=== PATIENT | female | born 1970 | race Caucasian/White ===

== ENCOUNTER → 2016-09-15 | Outpatient (CLI) | payer MEDICARE ==
--- NOTE | ~2016-09-15 | CT4 ---
[facility] A Service of [facility] RADIOLOGY TEXT RESULTS PATIENT: ABRAN HARRIS LOCATION: [facility] : 74 UNIT #: [id number] AGE: [address]: Rubén Nixon MD SEX: F ORDER DR: [id number] [facility] [address] [place], [place] [address] [id number] O MR#: [id number] Acc #: [id number] NAME: ABRAN HARRIS : 1970 SEX: F STUDY DATE/TIME: 09/15/2016 15:21 UNIT: [facility]AT ROOM: STUDY DESCRIPTION: CT Abd and Pelv Wo Cont Attending Physician: Rubén Nixon M.D. Referring Physician: Rubén Nixon M.D. Ordering Physician: Rubén Nixon M.D. Primary Care Physician: Jennifer Jain M.D. MEDICAL IMAGING REPORT This report is preliminary unless electronic signature is present EXAM CT abdomen and pelvis without contrast. INDICATIONS Unexplained 30 pounds weight loss in the past 2 months. Lower abdominal and pelvic pain and cramping for the past [address] of the abdomen and pelvis. This CT exam was performed with one or more of the following radiation dose reduction techniques: automatic exposure control, adjustment of mA and/or kV according to patient size, and iterative reconstruction. COMPARISON None FINDINGS ABDOMEN WITHOUT CONTRAST: Lung bases are clear. The liver measures 23.7 cm in length. Diffuse hepatic steatosis. Spleen measures 13.2 cm. The kidneys, adrenal glands, pancreas, and gallbladder have an unremarkable unenhanced appearance. The bowel loops are nondilated. Appendix is normal. PELVIS WITHOUT CONTRAST: No pelvic mass or fluid. No aggressive-appearing bone lesion. IMPRESSION 1. No acute findings in the abdomen or pelvis. 2. Hepatosplenomegaly with hepatic steatosis. Dictated by... [facility] A Service [facility] RADIOLOGY TEXT RESULTS PATIENT: ABRAN HARRIS LOCATION: [facility] : 74 UNIT #: [id number] AGE: [address]: Rubén Nixon MD SEX: F ORDER DR: Twan Busch M.D. THIS IS AN ELECTRONICALLY VERIFIED REPORT Twan Busch M.D. at 09/22/2016 8:20 AM Nanda TD: 09/16/2016 12:34 JOB #: [id number] MEDICAL IMAGING REPORT Page 1 of 1 COPY
[2016-09-15 13:59] LABS: HEMATOCRIT 40.4 % (35.0-45.0); HEMOGLOBIN 13.7 gm/dL (12.0-16.0); MEAN CELL VOLUME 95.9 FL (83-96); MEAN CORPUSCULAR HEMOGLOBIN 32.5 PG (28-34); MEAN CORPUSCULAR HGB CONC 33.9 g/dL (30-36); MEAN PLATELET VOLUME 7.6 FL (6.5-11.5); RED BLOOD COUNT 4.21 X10e (3.90-5.30); RED CELL DISTRIBUTION WIDTH 21.1 % (11.0-15.5); WHITE BLOOD COUNT 10.8 X10e3 (4.0-10.5)
[2016-09-15 14:46] LABS: ALBUMIN SERUM 3.6 g/dL (3.5-5.0); ALKALINE PHOSPHATASE 94 U/L (32-92); ALT (SGPT) 22 U/L (10-40); AMYLASE 8 U/L (0-46); AST (SGOT) 40 U/L (10-42); BILIRUBIN,TOTAL 0.4 mg/dL (0.2-2.0); BLOOD UREA NITROGEN <5 mg/dL (9-23); BUN/CREATININE RATIO 3.33; CALCIUM SERUM 9.8 mg/dL (8.4-10.2); CARBON DIOXIDE 26 mmol/L (22-31); CHLORIDE 109 mmol/L (100-111); CREATININE SERUM 1.5 mg/dL (0.6-1.4); GLOM FILT RATE Estimated 42.2 mL/min (>60); GLUCOSE FASTING 109 mg/dL (70-110); LIPASE 16 U/L (22-51); POTASSIUM 4.1 mmol/L (3.5-5.1); PROTEIN TOTAL SERUM 6.8 g/dL (6.0-8.3); SODIUM 145 mmol/L (135-145)
== END | disposition home or self-care (01) ==
LOC: CCAT 09-12 11:00 → CLAB 13:22 → CCAT 14:00
PROVIDERS: Internal Medicine
DX: R10.9 Unspecified abdominal pain (principal); R19.7 Diarrhea, unspecified; R63.4 Abnormal weight loss; R16.2 Hepatomegaly with splenomegaly, not elsewhere classified; K76.0 Fatty (change of) liver, not elsewhere classified
CPT/HCPCS: 36415; 74176; 80053; 82150; 83690; 85027; 86140

== ENCOUNTER → 2016-10-07 | Outpatient (CLI) | payer MEDICARE ==
--- NOTE | ~2016-10-07 | MR113 ---
[facility] A Service of [facility] RADIOLOGY TEXT RESULTS PATIENT: ABRAN HARRIS LOCATION: [facility] : 74 UNIT #: [id number] AGE: [address]: Deisy Corona APRN SEX: F ORDER DR: [id number] [facility] [address] [place], [place] [address] [id number] O MR#: [id number] Acc #: [id number] NAME: ABRAN HARRIS : 1970 SEX: F STUDY DATE/TIME: 10/07/2016 16:25 UNIT: [facility] ROOM: STUDY DESCRIPTION: MR Lumbar Wo Contrast Attending Physician: Deisy Corona A.P.R.N. Referring Physician: Deisy Corona A.P.R.N. Ordering Physician: Deisy Corona A.P.R.N. Primary Care Physician: Jennifer Jain M.D. MRI CENTER REPORT This report is preliminary unless electronic signature is present. EXAM Lumbar spine MRI without. HISTORY Lumbar spondylosis, low-back pain for 1 year with numbness in both thighs. No known injury. No history of cancer or surgery. FINDINGS MRI of the lumbar spine performed without contrast using routine 1.5T imaging technique. There is a CT scan from 03/11/2005. Sagittal alignment is normal. Bone marrow signal intensity is within normal limits allowing for small areas of focal fat or vertebral body hemangiomata formation. The conus medullaris terminates at L1-2 and is normal. There is minor concentric disc bulge at L2-3. At L1-2, there is no significant abnormality. At L2-3, there is the minor concentric disc bulge noted above with a slightly more focal left paramedian component. There is no canal stenosis or foraminal impingement. At L3-4, there is mild facet hypertrophy but no canal or foraminal impingement. At L4-5, moderate facet degenerative change bilaterally. Minor concentric disc bulge with minor effacement of the thecal sac but no significant canal or foraminal impingement. L5-S1, there is mild facet degenerative change bilaterally. Minimal posterior disc bulge. No canal stenosis. [facility]. [facility] A Service of [facility] RADIOLOGY TEXT RESULTS PATIENT: ABRAN HARRIS LOCATION: [facility] : 74 UNIT #: [id number] AGE: [address]: Deisy Corona APRN SEX: F ORDER DR: IMPRESSION Relatively mild lumbar degenerative changes. No evidence for lumbar canal stenosis. See above. Dictated by... Keyla Sanchez M.D. THIS IS AN ELECTRONICALLY VERIFIED REPORT Keyla Sanchez M.D. at 10/08/2016 1:57 PM SAC/carline TD: 10/08/2016 13:54 JOB #: [id number] MRI CENTER REPORT Page 1 of 1 COPY
== END | disposition home or self-care (01) ==
LOC: CMRI 09-30 14:00
DX: M47.817 Spondylosis without myelopathy or radiculopathy, lumbosacral region (principal); M47.896 Other spondylosis, lumbar region; M51.86 Other intervertebral disc disorders, lumbar region
CPT/HCPCS: 72148